=== PATIENT | female | born 1965 | race African-American/Black ===

== ENCOUNTER 2024-04-14 20:08 | Emergency (ER) | payer BC ==
[2024-04-14 21:59] LABS: SARS-CoV-2 E Target Negative; SARS-CoV-2 N2 Target Negative; SARS-CoV-2 NAA Rapid Test Not Detected (NotDetected); SARS-CoV-2 RdRP gene Negative
== END 2024-04-14 22:25 | disposition home or self-care (01) ==
LOC: MADERS 20:08
DX: J10.1 Influenza due to other identified influenza virus with other respiratory manifestations (principal)
CPT/HCPCS: 87804; 99283; U0002

== ENCOUNTER 2025-05-02 16:00 | Emergency (ER) | payer BC ==
[2025-05-02] MEDS ORDERED: Acetaminophen 500 MG TAB ONE (17:32)
[2025-05-02] MEDS ORDERED: predniSONE 20 MG TAB ONE (17:32)
== END 2025-05-02 18:11 | disposition home or self-care (01) ==
LOC: MADERS 16:00
DX: M54.32 Sciatica, left side (principal)
CPT/HCPCS: 96372; 99283; J1885; J7512